=== PATIENT | female | born 1945 | race Caucasian/White ===

== ENCOUNTER 2021-01-05 09:22 | Inpatient (IN) ==
[2021-01-05] MEDS ORDERED: D5% in Water 1,000 ML IVC PRN (12:43)
[2021-01-05] MEDS ORDERED: *HR* Dextrose 50 % in Water (Vial) 50 ML VIAL IVP PRN (12:43)
[2021-01-05] MEDS ORDERED: Dextrose Gel 15 GM/37.5 ML TUBE PO PRN ×2 (12:43)
[2021-01-05] MEDS ORDERED: Fluticasone Propionate Nasal 50 MCG/SPRAY BOTTLE NS PRN (12:44)
[2021-01-05] MEDS: Insulin LISPRO 300 UNITS/3 ML VIAL SUBQ SCH ×3 (13:29→20:54)
[2021-01-05] MEDS: Ipratropium/Albuterol Neb 3 ML IH SCH ×2 (16:19→22:07)
[2021-01-05] MEDS: Apixaban 5 MG TABLET PO SCH (20:52)
[2021-01-05] MEDS: Pregabalin 75 MG CAPSULE PO SCH (20:53)
[2021-01-05] MEDS: Magnesium Oxide 400 MG TABLET PO SCH (20:53)
[2021-01-06] MEDS: Ipratropium/Albuterol Neb 3 ML IH SCH ×3 (03:26→17:34)
[2021-01-06 05:58] LABS: Basophils % 0.4 %; Eosinophils # 0.2 K/mcL (0.0-0.6); Hematocrit 33.4 % (35.3-44.9); Hemoglobin 10.7 g/dL (11.5-15.4); Immature Granulocytes % 1.1 % (0-4); Lymphocytes # 1.6 K/mcL (0.6-4.6); Lymphocytes % 20.4 %; Mean Corpuscular Hemoglobin 29.9 pg (28.0-33.3); Mean Corpuscular Volume 93.3 fL (83.0-100.0); Mean Platelet Volume 9.3 fL (9.4-12.4); Monocytes # 0.5 K/mcL (0.0-1.3); Monocytes % 7.1 %; Neutrophils # 5.2 K/mcL (1.6-8.9); Platelet Count 316 K/mcL (140-400); Red Blood Count 3.58 M/mcL (3.82-4.97); Red Cell Distribution Width 13.6 % (11.5-14.5); White Blood Count 7.6 K/mcL (4.3-11.1)
[2021-01-06 06:15] LABS: BUN/Creatinine Ratio 25 (6-26); Blood Urea Nitrogen 21 mg/dL (8-23); Calcium 7.6 mg/dL (8.6-10.3); Carbon Dioxide 29 mEq/L (23-29); Chloride 101 mEq/L (98-107); Glucose 183 mg/dL (70-105); Osmolality,Calculated 296 (280-300); Potassium 3.7 mEq/L (3.5-5.1); Sodium 139 mEq/L (136-145); eGFR For African Americans > 60 (> 60); eGFR For Non-African Americans > 60 (> 60)
[2021-01-06 06:16] LABS: Albumin 2.9 g/dL (3.5-5.7); Albumin/Globulin Ratio 1.3 (1.1-2.2); Bilirubin,Direct 0.1 mg/dL (0.0-0.2); Bilirubin,Indirect 0.3 mg/dL (0.0-1.0); Bilirubin,Total 0.4 mg/dL (0.3-1.0); Globulin 2.3 g/dL (2.4-3.5); Magnesium 1.6 mg/dL (1.6-2.6); Phosphorous 4.5 mg/dL (2.7-4.5); Total Protein 5.2 g/dL (6.4-8.9)
[2021-01-06] MEDS: Insulin LISPRO 300 UNITS/3 ML VIAL SUBQ SCH ×4 (08:29→21:40)
[2021-01-06] MEDS: Pregabalin 75 MG CAPSULE PO SCH ×2 (08:31→21:43)
[2021-01-06] MEDS: *HR* Glimepiride 2 MG TABLET PO SCH (08:31)
[2021-01-06] MEDS: DilTIAZem CD (24hr) 180 MG CAP.ER.24H PO SCH (08:31)
[2021-01-06] MEDS: Apixaban 5 MG TABLET PO SCH ×2 (08:31→21:43)
[2021-01-06] MEDS: Aspirin Enteric Coated 81 MG Tablet PO SCH (08:31)
[2021-01-06] MEDS: Magnesium Oxide 400 MG TABLET PO SCH ×2 (08:31→21:43)
[2021-01-06] MEDS: allopurinoL 300 MG TABLET PO SCH (08:31)
[2021-01-06] MEDS: predniSONE 1 MG TABLET PO SCH (08:31)
[2021-01-06] MEDS ORDERED: PREDNISONE 2.5 MG PO SCH (09:00)
[2021-01-06] MEDS ORDERED: Ipratropium/Albuterol Neb 3 ML IH PRN (17:07)
[2021-01-07 06:05] LABS: Basophils # 0.1 K/mcL (0.0-0.2); Basophils % 0.5 %; Eosinophils # 0.1 K/mcL (0.0-0.6); Eosinophils % 1.4 %; Hematocrit 31.9 % (35.3-44.9); Hemoglobin 10.3 g/dL (11.5-15.4); Immature Granulocytes % 1.1 % (0-4); Lymphocytes % 20.9 %; Mean Corpuscular HGB Conc 32.3 g/dL (31.6-35.5); Mean Corpuscular Hemoglobin 30.1 pg (28.0-33.3); Mean Corpuscular Volume 93.3 fL (83.0-100.0); Mean Platelet Volume 9.3 fL (9.4-12.4); Monocytes # 0.6 K/mcL (0.0-1.3); Monocytes % 6.5 %; Neutrophils # 6.5 K/mcL (1.6-8.9); Platelet Count 346 K/mcL (140-400); Red Blood Count 3.42 M/mcL (3.82-4.97); Red Cell Distribution Width 13.8 % (11.5-14.5); Segmented Neutrophils % 69.6 %; White Blood Count 9.3 K/mcL (4.3-11.1)
[2021-01-07 06:22] LABS: Alanine Aminotransferase 13 Units/L (7-52); Albumin 2.9 g/dL (3.5-5.7); Albumin/Globulin Ratio 1.2 (1.1-2.2); Alkaline Phosphatase 68 Units/L (34-104); Aspartate Amino Transferase 11 Units/L (13-39); BUN/Creatinine Ratio 28 (6-26); Bilirubin,Direct 0.1 mg/dL (0.0-0.2); Bilirubin,Indirect 0.2 mg/dL (0.0-1.0); Bilirubin,Total 0.3 mg/dL (0.3-1.0); Blood Urea Nitrogen 24 mg/dL (8-23); Calcium 7.8 mg/dL (8.6-10.3); Carbon Dioxide 30 mEq/L (23-29); Chloride 102 mEq/L (98-107); Globulin 2.4 g/dL (2.4-3.5); Glucose 133 mg/dL (70-105); Osmolality,Calculated 296 (280-300); Potassium 3.6 mEq/L (3.5-5.1); Sodium 140 mEq/L (136-145); Total Protein 5.3 g/dL (6.4-8.9); eGFR For African Americans > 60 (> 60); eGFR For Non-African Americans > 60 (> 60)
[2021-01-07] MEDS: Insulin LISPRO 300 UNITS/3 ML VIAL SUBQ SCH ×4 (08:09→20:33)
[2021-01-07] MEDS: Magnesium Oxide 400 MG TABLET PO SCH ×2 (09:41→20:33)
[2021-01-07] MEDS: Aspirin Enteric Coated 81 MG Tablet PO SCH (09:41)
[2021-01-07] MEDS: DilTIAZem CD (24hr) 180 MG CAP.ER.24H PO SCH (09:42)
[2021-01-07] MEDS: Pregabalin 75 MG CAPSULE PO SCH ×2 (09:42→20:32)
[2021-01-07] MEDS: predniSONE 1 MG TABLET PO SCH (09:42)
[2021-01-07] MEDS: *HR* Glimepiride 2 MG TABLET PO SCH (09:42)
[2021-01-07] MEDS: Apixaban 5 MG TABLET PO SCH ×2 (09:42→20:33)
[2021-01-07] MEDS: allopurinoL 300 MG TABLET PO SCH (09:42)
[2021-01-08] MEDS: Pregabalin 75 MG CAPSULE PO SCH ×2 (07:36→20:54)
[2021-01-08] MEDS: *HR* Glimepiride 2 MG TABLET PO SCH (07:37)
[2021-01-08] MEDS: DilTIAZem CD (24hr) 180 MG CAP.ER.24H PO SCH (07:37)
[2021-01-08] MEDS: Aspirin Enteric Coated 81 MG Tablet PO SCH (07:37)
[2021-01-08] MEDS: Apixaban 5 MG TABLET PO SCH ×2 (07:37→20:54)
[2021-01-08] MEDS: Magnesium Oxide 400 MG TABLET PO SCH ×2 (07:38→20:53)
[2021-01-08] MEDS: allopurinoL 300 MG TABLET PO SCH (07:38)
[2021-01-08] MEDS: predniSONE 1 MG TABLET PO SCH (07:38)
[2021-01-08] MEDS: Insulin LISPRO 300 UNITS/3 ML VIAL SUBQ SCH ×4 (07:40→20:57)
[2021-01-08] MEDS: Acetaminophen 325 MG TABLET PO PRN (20:56)
[2021-01-09] MEDS: Insulin LISPRO 300 UNITS/3 ML VIAL SUBQ SCH ×4 (07:30→20:37)
[2021-01-09] MEDS: *HR* Glimepiride 2 MG TABLET PO SCH (09:37)
[2021-01-09] MEDS: Apixaban 5 MG TABLET PO SCH ×2 (09:37→20:36)
[2021-01-09] MEDS: Magnesium Oxide 400 MG TABLET PO SCH ×2 (09:37→20:37)
[2021-01-09] MEDS: Pregabalin 75 MG CAPSULE PO SCH ×2 (09:37→20:36)
[2021-01-09] MEDS: Aspirin Enteric Coated 81 MG Tablet PO SCH (09:37)
[2021-01-09] MEDS: predniSONE 1 MG TABLET PO SCH (09:37)
[2021-01-09] MEDS: allopurinoL 300 MG TABLET PO SCH (09:37)
[2021-01-09] MEDS: DilTIAZem CD (24hr) 180 MG CAP.ER.24H PO SCH (09:44)
[2021-01-09] MEDS: Acetaminophen 325 MG TABLET PO PRN (20:36)
[2021-01-10] MEDS: Insulin LISPRO 300 UNITS/3 ML VIAL SUBQ SCH ×4 (07:36→22:16)
[2021-01-10] MEDS: Apixaban 5 MG TABLET PO SCH ×2 (08:29→22:12)
[2021-01-10] MEDS: Pregabalin 75 MG CAPSULE PO SCH ×2 (08:29→22:13)
[2021-01-10] MEDS: DilTIAZem CD (24hr) 180 MG CAP.ER.24H PO SCH (08:29)
[2021-01-10] MEDS: Aspirin Enteric Coated 81 MG Tablet PO SCH (08:29)
[2021-01-10] MEDS: Magnesium Oxide 400 MG TABLET PO SCH ×2 (08:29→22:13)
[2021-01-10] MEDS: allopurinoL 300 MG TABLET PO SCH (08:29)
[2021-01-10] MEDS: predniSONE 1 MG TABLET PO SCH (08:29)
[2021-01-10] MEDS: *HR* Glimepiride 2 MG TABLET PO SCH (08:30)
[2021-01-10] MEDS: Acetaminophen 325 MG TABLET PO PRN (22:14)
[2021-01-10] MEDS: (Cyclosporine [Restasis] 1 EACH Droperette) OP SCH (22:22)
[2021-01-11] MEDS: (Cyclosporine [Restasis] 1 EACH Droperette) OP SCH ×2 (08:53→20:29)
[2021-01-11] MEDS: Insulin LISPRO 300 UNITS/3 ML VIAL SUBQ SCH ×4 (08:53→20:27)
[2021-01-11] MEDS: Magnesium Oxide 400 MG TABLET PO SCH ×2 (08:57→20:24)
[2021-01-11] MEDS: DilTIAZem CD (24hr) 180 MG CAP.ER.24H PO SCH (08:57)
[2021-01-11] MEDS: predniSONE 1 MG TABLET PO SCH (08:57)
[2021-01-11] MEDS: *HR* Glimepiride 2 MG TABLET PO SCH (08:57)
[2021-01-11] MEDS: Pregabalin 75 MG CAPSULE PO SCH ×2 (08:57→20:24)
[2021-01-11] MEDS: Aspirin Enteric Coated 81 MG Tablet PO SCH (08:57)
[2021-01-11] MEDS: Apixaban 5 MG TABLET PO SCH ×2 (08:57→20:24)
[2021-01-11] MEDS: allopurinoL 300 MG TABLET PO SCH (08:57)
[2021-01-11] MEDS: Acetaminophen 325 MG TABLET PO PRN (20:25)
[2021-01-12] MEDS: predniSONE 1 MG TABLET PO SCH (07:55)
[2021-01-12] MEDS: Apixaban 5 MG TABLET PO SCH ×2 (07:55→20:34)
[2021-01-12] MEDS: DilTIAZem CD (24hr) 180 MG CAP.ER.24H PO SCH (07:55)
[2021-01-12] MEDS: allopurinoL 300 MG TABLET PO SCH (07:56)
[2021-01-12] MEDS: Magnesium Oxide 400 MG TABLET PO SCH ×2 (07:56→20:34)
[2021-01-12] MEDS: *HR* Glimepiride 2 MG TABLET PO SCH (07:56)
[2021-01-12] MEDS: Aspirin Enteric Coated 81 MG Tablet PO SCH (07:56)
[2021-01-12] MEDS: Pregabalin 75 MG CAPSULE PO SCH ×2 (08:00→20:33)
[2021-01-12] MEDS: (Cyclosporine [Restasis] 1 EACH Droperette) OP SCH ×2 (08:00→20:35)
[2021-01-12] MEDS: Insulin LISPRO 300 UNITS/3 ML VIAL SUBQ SCH ×4 (08:01→20:36)
[2021-01-12] MEDS: Acetaminophen 325 MG TABLET PO PRN ×2 (10:34→20:34)
[2021-01-13] MEDS: Insulin LISPRO 300 UNITS/3 ML VIAL SUBQ SCH ×4 (08:46→21:15)
[2021-01-13] MEDS: *HR* Glimepiride 4 MG TABLET PO SCH (08:47)
[2021-01-13] MEDS: Aspirin Enteric Coated 81 MG Tablet PO SCH (08:47)
[2021-01-13] MEDS: Apixaban 5 MG TABLET PO SCH ×2 (08:47→21:13)
[2021-01-13] MEDS: Pregabalin 75 MG CAPSULE PO SCH ×2 (08:47→21:13)
[2021-01-13] MEDS: predniSONE 1 MG TABLET PO SCH (08:47)
[2021-01-13] MEDS: DilTIAZem CD (24hr) 180 MG CAP.ER.24H PO SCH (08:47)
[2021-01-13] MEDS: allopurinoL 300 MG TABLET PO SCH (08:48)
[2021-01-13] MEDS: Magnesium Oxide 400 MG TABLET PO SCH ×2 (08:48→21:14)
[2021-01-13] MEDS: (Cyclosporine [Restasis] 1 EACH Droperette) OP SCH ×2 (08:54→21:17)
[2021-01-14 07:01] VITALS: BP 110/72
[2021-01-14] MEDS: Insulin LISPRO 300 UNITS/3 ML VIAL SUBQ SCH ×2 (08:31→12:28)
[2021-01-14] MEDS: allopurinoL 300 MG TABLET PO SCH (09:24)
[2021-01-14] MEDS: *HR* Glimepiride 4 MG TABLET PO SCH (09:25)
[2021-01-14] MEDS: DilTIAZem CD (24hr) 180 MG CAP.ER.24H PO SCH (09:25)
[2021-01-14] MEDS: predniSONE 1 MG TABLET PO SCH (09:25)
[2021-01-14] MEDS: Apixaban 5 MG TABLET PO SCH (09:25)
[2021-01-14] MEDS: Pregabalin 75 MG CAPSULE PO SCH (09:25)
[2021-01-14] MEDS: Magnesium Oxide 400 MG TABLET PO SCH (09:25)
[2021-01-14] MEDS: Aspirin Enteric Coated 81 MG Tablet PO SCH (09:29)
[2021-01-14] MEDS: (Cyclosporine [Restasis] 1 EACH Droperette) OP SCH (09:30)
== END 2021-01-14 14:14 | disposition home health service (06) | DRG 556 ==
LOC: INPGRE 11:38
PROVIDERS: ADMIT Family Medicine; ATTEND Family Medicine